=== PATIENT | male | born 1955 | race Caucasian/White ===

== ENCOUNTER 2021-03-12 06:24 | Day surgery (SDC) | payer OTHER, SELFPAY ==
[~2021-03-12] VITALS: Ht 175.3 cm; Wt 103.4 kg
[2021-03-12] MEDS ORDERED: fentaNYL citrate 0.05 MG/ML VIAL ONE (08:23)
[2021-03-12] MEDS ORDERED: MIDAZOLAM 5 MG/5 ML VIAL ONE (08:24)
[2021-03-12] MEDS ORDERED: LIDOCAINE 2% 100 MG/5 ML UJET TP ONE ×2 (08:24→09:05)
[2021-03-12] MEDS ORDERED: MIDAZOLAM 2 MG/2 ML VIAL IVP ONE (09:05)
[2021-03-12] MEDS ORDERED: fentaNYL citrate 0.05 MG/ML VIAL IVP ONE (09:20)
== END 2021-03-12 10:04 | disposition home or self-care (01) ==
LOC: MDS 06:24 → MMU 06:25 → MDS 10:04
PROVIDERS: ATTEND Internal Medicine Gastroenterology
DX: Z12.11 Encounter for screening for malignant neoplasm of colon (principal); K63.5 Polyp of colon; K29.70 Gastritis, unspecified, without bleeding; E66.9 Obesity, unspecified; Z20.822 Contact with and (suspected) exposure to COVID-19; Z68.33 Body mass index [BMI] 33.0-33.9, adult; Z79.899 Other long term (current) drug therapy
CPT/HCPCS: 36415; 43239; 45385; 86677; J2250; J3010; U0003